=== PATIENT | male | born 1985 | race Caucasian/White ===

== ENCOUNTER 2016-06-07 17:54 | Emergency (ER) | payer SELFPAY ==
[~2016-06-07] VITALS: Ht 175.3 cm; Wt 79.0 kg
[~2016-06-07 17:54] MED LIST: AUGM875T PO; CHLO.12%30 SSP; CLIN150 PO; IBUP400T20 PO; ULTR50TA PO
[2016-06-07 17:55] VITALS: BP 183/101; PULSE 72; RESP 17; TEMP 98.2; O2SAT 96
== END 2016-06-07 21:30 | disposition left against medical advice (07) ==
LOC: NED 17:54
DX: R10.9 Unspecified abdominal pain (principal); Z53.21 Procedure and treatment not carried out due to patient leaving prior to being seen by health care provider
CPT/HCPCS: 99281